=== PATIENT | male | born 1960 | race Caucasian/White ===

== ENCOUNTER 2020-10-22 11:07 | Emergency (ER) | payer OTHER ==
[~2020-10-22] VITALS: Ht 182.9 cm; Wt 97.5 kg
[2020-10-22] MEDS ORDERED: LOVASTATIN 20 M20 MG PO (11:15)
[2020-10-22] MEDS ORDERED: OMEPRAZOLE 20 M20 M1 PO (11:15)
[2020-10-22 11:46] LABS: ABSOLUTE NEUTROPHILS 3.4 thou/uL (1.4-8.2); BASOPHILS 1.2 % (0.0-2.0); EOSINOPHILS 1.5 % (0.0-3.0); HEMATOCRIT 47.8 % (42.0-52.0); HEMOGLOBIN 16.3 gm/dL (14.0-18.0); LYMPHOCYTES 33.3 % (24.0-44.0); MCH 33.1 pg (26.0-34.0); MCHC 34.2 g/dL (28.0-37.0); MCV 96.9 fL (80.0-100.0); PLATELET COUNT 239 thou/uL (150-400); RBC 4.93 mil/uL (4.50-6.00); RDW 13.4 % (10.5-14.5); WBC 6.1 thou/uL (4.0-11.0)
[2020-10-22 12:06] LABS: ANION GAP 11 mmol/L (7-16); BUN 8 mg/dL (7-18); CALCIUM 9.2 mg/dL (8.5-10.1); CHLORIDE 96 mmol/L (98-107); CO2 28 mmol/L (21-32); CREATININE 1.3 mg/dL (0.7-1.3); GLUCOSE 134 mg/dL (74-106); POTASSIUM 4.2 mmol/L (3.5-5.1); SODIUM 135 mmol/L (136-145)
[2020-10-22 12:10] LABS: TROPONIN-I <0.06 ng/mL (<0.06)
[2020-10-22] MEDS ORDERED: NORVASC5 M1 PO (12:46)
[2020-10-22 12:56] VITALS: BP 174/110
--- NOTE | 2020-10-23 06:47 | EKG ---
[place] [address] [place] [address] ELECTROCARDIOGRAM REPORT Name: DYLON KEYES [facility] [id number] Admission: 10/22/20 Attend Phys: Discharge: 10/22/20 Date of : 58 Report #: [id number] [facility] ED Test Date: 2020-10-22 Test Time: 11:12:29 Pat Name: DYLON KEYES Department: Room: Gender: M Operations Inspector: ADDY : 1960 Requested By: Cedrick Carrero Order Number: [id number] MD: Nilson Venegas Measurements Intervals [place] Rate: 103 P: 34 UT: 189 QRS: -9 QRSD: 81 T: 49 QT: 338 QTc: 443 Interpretive Statements Sinus tachycardia Probable left atrial enlargement RSR' in V1 or V2, probably normal variant Baseline wander in lead(s) V2 Compared to ECG 01/18/2007 07:28:19 RSR' in V1 or V2 now present Sinus rhythm no longer present Ventricular premature complex(es) no longer present Electronically Signed On 10-23-2020 6:47:50 [employer] by Nilson Venegas [email or web address] <ELECTRONICALLY SIGNED> By: Nilson Venegas MD, FAC 10/23/20 [id number] Nilson Venegas MD, [facility] /EPI
== END 2020-10-22 13:00 | disposition home or self-care (01) ==
LOC: ER 11:07
PROVIDERS: Nurse Practitioner
DX: R07.89 Other chest pain (principal); I10 Essential (primary) hypertension; K21.9 Gastro-esophageal reflux disease without esophagitis; J44.9 Chronic obstructive pulmonary disease, unspecified; Z79.899 Other long term (current) drug therapy; Z88.1 Allergy status to other antibiotic agents

== ENCOUNTER → 2020-11-20 | Outpatient (CLI) | payer OTHER ==
[~2020-11-20] MED LIST: LOVASTATIN 20 M20 MG PO; NORVASC5 M1 PO; OMEPRAZOLE 20 M20 M1 PO
== END ==
LOC: SJCVCIMAG 06:42
PROVIDERS: ATTEND Internal Medicine
DX: I07.1 Rheumatic tricuspid insufficiency (principal); R00.0 Tachycardia, unspecified; R07.9 Chest pain, unspecified; R06.00 Dyspnea, unspecified; I10 Essential (primary) hypertension; E78.5 Hyperlipidemia, unspecified; F17.200 Nicotine dependence, unspecified, uncomplicated; F17.210 Nicotine dependence, cigarettes, uncomplicated; F12.90 Cannabis use, unspecified, uncomplicated; Z72.89 Other problems related to lifestyle; Z88.8 Allergy status to other drugs, medicaments and biological substances; Z88.1 Allergy status to other antibiotic agents; Z79.82 Long term (current) use of aspirin; Z79.899 Other long term (current) drug therapy